=== PATIENT | male | born 1970 | race Caucasian/White ===

== ENCOUNTER 2019-10-11 10:51 | Emergency (ER) | payer OTHER ==
[2019-10-11 11:00] VITALS: RESP 18; TEMP 97.5
--- NOTE | 2019-10-11 12:03 | ED ---
GI Bleed HPI <Keith James - Last Filed: 10/11/19 14:32> - General Source: patient Mode of arrival: ambulatory Limitations: no limitations <Olga Vasquez - Last Filed: 10/11/19 15:39> - General Chief complaint: GI Bleed Stated complaint: Stomach pain Time Seen by Provider: 10/11/19 11:24 - History of Present Illness Initial comments: 49yo presents today for chief complaint of right lower quadrant abdominal discomfort and rectal bleeding. Patient states that for the past 5 days he has had blood in his stool with bowel movements as well as slight right lower quadrant abdominal discomfort. Patient denies any severe pain he states his stomach seems upset after eating. Patient denies nausea or vomiting. Patient denies any catrachito diarrhea. Patient states he has had a previous colonoscopy approximately 2 years ago where he was told he had diverticulosis. Patient denies any use of any medications denies anticoagulation use. Patient states that he has not had fevers, denies sick contact, or recent travel. Denies any specific food exposures. Patient denies any cold intolerance palpitations lightheadedness or presyncope. He states when the symptoms persisted today he felt those best he came in for evaluation. Patient denies any other complaints and upon arrival he appears well no signs of acute distress (Olga Vasquez) - Related Data Previous Rx's Medication Instructions Recorded Amoxic-Pot Clav 875-125Mg 1 tab PO Q12HR 7 Days #14 tablet 10/11/19 [Augmentin 875-125] Allergies Allergy/AdvReac Type Severity Reaction Status Date / Time No Known Allergies Allergy Verified 05/29/16 09:39 Review of Systems ROS Other: All systems not noted in ROS Statement are negative. <Keith James - Last Filed: 10/11/19 14:32> ROS Other: All systems not noted in ROS Statement are negative. <Olga Vasquez - Last Filed: 10/11/19 15:39> ROS Statement: Those systems with pertinent positive or pertinent negative responses have been documented in the HPI. Past Medical History Additional Past Medical History / Comment(s): collapsed lung 2000. recent diarrhea-family hx of bowel problems History of Any Multi-Drug Resistant Organisms: None Reported Past Surgical History: No Surgical Hx Reported Past Anesthesia/Blood Transfusion Reactions: No Reported Reaction Additional Past Anesthesia/Blood Transfusion Reaction / Comment(s): NO PRIOR SURGICAL HX Past Psychological History: No Psychological Hx Reported Smoking Status: Current every day smoker Past Alcohol Use History: Occasional Past Drug Use History: None Reported - Past Family History Mother Additional Family Medical History / Comment(s): CROHNS DISEASE <Olga Vasquez - Last Filed: 10/11/19 15:39> General Exam Limitations: no limitations <Olga Vasquez - Last Filed: 10/11/19 15:39> - General Exam Comments Initial Comments: General: The patient is awake and alert, in no distress, and does not appear acutely ill. Eye: +3 mm pupils are equal, round and reactive to light, extra-ocular movements are intact. No nystagmus. There is normal conjunctiva bilaterally. No signs of icterus. Ears, nose, mouth and throat: There are moist mucous membranes and no oral lesions. Neck: No JVD. Cardiovascular: There is a regular rate and rhythm. No murmur, rub or gallop is appreciated. Respiratory: Lungs are clear to auscultation, respirations are non-labored, breath sounds are equal. No wheezes, stridor, rales, or rhonchi. Gastrointestinal: Soft, non-distended, mild right lower quadrant abdominal tenderness remaining abdomen is nontender and without masses or organomegaly noted. There is no rebound or guarding present. No CVA tenderness. Bowel sounds are unremarkable. Musculoskeletal: Normal ROM, no tenderness. Strength 5/5. Sensation intact. radial pulses equal bilaterally 2+. Neurological: A&O x 3. CN II-XII intact grossly, There are no obvious motor or sensory deficits. Coordination appears grossly intact. Speech is normal. Skin: Skin is warm and dry and no rashes or lesions are noted. No LE edema. Psychiatric: Cooperative, appropriate mood & affect, normal judgment. (Olga Vasquez) Course Vital Signs 10/11/19 10/11/19 10/11/19 10:57 11:59 12:23 Temperature 97.5 F L Pulse Rate 71 60 Respiratory 18 18 16 Rate Blood Pressure 128/79 O2 Sat by Pulse 100 96 Oximetry 10/11/19 10/11/19 10/11/19 12:30 12:59 13:00 Temperature Pulse Rate 61 57 L Respiratory 16 18 16 Rate Blood Pressure 117/79 119/75 O2 Sat by Pulse 99 97 98 Oximetry 10/11/19 10/11/19 10/11/19 13:30 13:59 14:00 Temperature Pulse Rate 57 L Respiratory 18 16 Rate Blood Pressure 118/76 O2 Sat by Pulse 97 99 Oximetry 10/11/19 10/11/19 10/11/19 14:30 14:59 15:00 Temperature Pulse Rate 61 64 Respiratory 18 18 18 Rate Blood Pressure 116/74 115/67 O2 Sat by Pulse 98 97 97 Oximetry 10/11/19 15:22 Temperature Pulse Rate 64 Respiratory 18 Rate Blood Pressure 115/71 O2 Sat by Pulse 96 Oximetry Medical Decision Making - Lab Data Result diagrams: 10/11/19 12:18 10/11/19 12:18 <Keith James - Last Filed: 10/11/19 14:32> - Lab Data Result diagrams: 10/11/19 12:18 10/11/19 12:18 <Olga Vasquez - Last Filed: 10/11/19 15:39> - Medical Decision Making Discussed patient case with Dr. Fischer. CT imaging results were relayed to surgery. he is well-appearing. Surgery recommendations were to discharge and follow-up in the office on . (Keith James) Well-appearing 49-year-old male presenting for rectal bleeding with bowel movements. History of diverticulosis. No acute findings on CT consistent with diverticulitis. CT him and her results including incidental findings and other GI abnormalities were discussed with both patient and Dr. Fischer, who recommended outpatient f/u oN . Patient continues to have a benign abdominal exam, appears well in no discomfort and at this time I feel he stated for discharge with strict return parameters and general surgery f/u. Discussed case in detail with Dr. James who spoke with Dr. Fischer, reviewed labs, history and is agreeable to care plan and discharge. Return parameters were discussed at length prior to patient's discharge. Patient is agreeable (Olga Vasquez) - Lab Data Lab Results 10/11/19 10/11/19 10/11/19 Range/Units 12:18 12:18 12:18 WBC 6.1 (3.8-10.6) k/uL RBC 5.00 (4.30-5.90) m/uL Hgb 15.8 (13.0-17.5) gm/dL Hct 47.8 (39.0-53.0) % MCV 95.6 (80.0-100.0) fL MCH 31.6 (25.0-35.0) pg MCHC 33.1 (31.0-37.0) g/dL RDW 12.6 (11.5-15.5) % Plt Count 195 (150-450) k/uL Neutrophils % 65 % Lymphocytes % 22 % Monocytes % 6 % Eosinophils % 4 % Basophils % 1 % Neutrophils # 3.9 (1.3-7.7) k/uL Lymphocytes # 1.3 (1.0-4.8) k/uL Monocytes # 0.3 (0-1.0) k/uL Eosinophils # 0.3 (0-0.7) k/uL Basophils # 0.0 (0-0.2) k/uL APTT (22.0-30.0) sec Sodium 137 (137-145) mmol/L Potassium 4.2 (3.5-5.1) mmol/L Chloride 105 (98-107) mmol/L Carbon Dioxide 23 (22-30) mmol/L Anion Gap 9 mmol/L BUN 15 (9-20) mg/dL Creatinine 0.79 (0.66-1.25) mg/dL Est GFR (CKD-EPI)AfAm >90 (>60 ml/min/1.73 sqM) Est GFR (CKD-EPI)NonAf >90 (>60 ml/min/1.73 sqM) Glucose 92 (74-99) mg/dL Plasma Lactic Acid Edgar 1.1 (0.7-2.0) mmol/L Calcium 9.4 (8.4-10.2) mg/dL Total Bilirubin 0.6 (0.2-1.3) mg/dL AST 30 (17-59) U/L ALT 24 (4-49) U/L Alkaline Phosphatase 83 (38-126) U/L Troponin I (0.000-0.034) ng/mL Total Protein 7.4 (6.3-8.2) g/dL Albumin 4.6 (3.5-5.0) g/dL Stool Occult Blood (Negative) 10/11/19 10/11/19 10/11/19 Range/Units 12:18 12:18 15:15 WBC (3.8-10.6) k/uL RBC (4.30-5.90) m/uL Hgb (13.0-17.5) gm/dL Hct (39.0-53.0) % MCV (80.0-100.0) fL MCH (25.0-35.0) pg MCHC (31.0-37.0) g/dL RDW (11.5-15.5) % Plt Count (150-450) k/uL Neutrophils % % Lymphocytes % % Monocytes % % Eosinophils % % Basophils % % Neutrophils # (1.3-7.7) k/uL Lymphocytes # (1.0-4.8) k/uL Monocytes # (0-1.0) k/uL Eosinophils # (0-0.7) k/uL Basophils # (0-0.2) k/uL APTT 23.0 (22.0-30.0) sec Sodium (137-145) mmol/L Potassium (3.5-5.1) mmol/L Chloride (98-107) mmol/L Carbon Dioxide (22-30) mmol/L Anion Gap mmol/L BUN (9-20) mg/dL Creatinine (0.66-1.25) mg/dL Est GFR (CKD-EPI)AfAm (>60 ml/min/1.73 sqM) Est GFR (CKD-EPI)NonAf (>60 ml/min/1.73 sqM) Glucose (74-99) mg/dL Plasma Lactic Acid Edgar (0.7-2.0) mmol/L Calcium (8.4-10.2) mg/dL Total Bilirubin (0.2-1.3) mg/dL AST (17-59) U/L ALT (4-49) U/L Alkaline Phosphatase (38-126) U/L Troponin I <0.012 (0.000-0.034) ng/mL Total Protein (6.3-8.2) g/dL Albumin (3.5-5.0) g/dL Stool Occult Blood Negative (Negative) Disposition <Keith James - Last Filed: 10/11/19 14:32> Is patient prescribed a controlled substance at d/c from ED?: No Time of Disposition: 14:53 <Olga Vasquez - Last Filed: 10/11/19 15:39> Clinical Impression: GI bleed, Lung nodule, Diverticulosis, Abdominal discomfort Disposition: HOME SELF-CARE Condition: Good Instructions (If sedation given, give patient instructions): Gastrointestinal Bleeding (ED) Additional Instructions: Please use medication as discussed. Please follow-up with general surgery as discussed, call office to set up time. Return for increasing bleeding, pain or lightheadedness/presyncope. Please return to emergency room if the symptoms increase or worsen or for any other concerns. Prescriptions: Amoxic-Pot Clav 875-125Mg [Augmentin 875-125] 1 tab PO Q12HR 7 Days #14 tablet Referrals: Sandro Cortes MD [Primary Care Provider] - 1-2 days Kyree Fischer MD [STAFF PHYSICIAN] - 1-2 days
[2019-10-11 12:37] LABS: Basophils % (A) 1 %; Eosinophils # (A) 0.3 k/uL (0-0.7); Eosinophils % (A) 4 %; HCT 47.8 % (39.0-53.0); HGB 15.8 gm/dL (13.0-17.5); Lymphocytes # (A) 1.3 k/uL (1.0-4.8); Lymphocytes % (A) 22 %; MCH 31.6 pg (25.0-35.0); MCHC 33.1 g/dL (31.0-37.0); MCV 95.6 fL (80.0-100.0); Mean Platelet Volume 7.4; Monocytes # (A) 0.3 k/uL (0-1.0); Monocytes % (A) 6 %; Neutrophils # (A) 3.9 k/uL (1.3-7.7); Neutrophils % (A) 65 %; Platelet Count 195 k/uL (150-450); RDW 12.6 % (11.5-15.5); WBC 6.1 k/uL (3.8-10.6)
[2019-10-11 12:47] LABS: ALT 24 U/L (4-49); AST 30 U/L (17-59); African American GFR (CKD) >90 (>60 ml/min/1.73 sqM); Albumin 4.6 g/dL (3.5-5.0); Alkaline Phosphatase 83 U/L (38-126); Anion Gap 9 mmol/L; Blood Urea Nitrogen 15 mg/dL (9-20); Calcium 9.4 mg/dL (8.4-10.2); Carbon Dioxide 23 mmol/L (22-30); Chloride 105 mmol/L (98-107); Glucose 92 mg/dL (74-99); Non-African American GFR(CKD) >90 (>60 ml/min/1.73 sqM); Potassium 4.2 mmol/L (3.5-5.1); Sodium 137 mmol/L (137-145); Total Bilirubin 0.6 mg/dL (0.2-1.3); Total Protein 7.4 g/dL (6.3-8.2)
--- NOTE | 2019-10-11 13:55 | CT ---
EXAMINATION TYPE: CT abdomen pelvis w con DATE OF EXAM: 10/11/2019 COMPARISON: 12/07/2015 CT chest HISTORY: RLQ pain CT DLP: 1189.9 mGycm Automated exposure control for dose reduction was used. TECHNIQUE: Helical acquisition of images was performed from the lung bases through the pelvis. CONTRAST: Performed without Oral Contrast and with IV Contrast, patient injected with 100 mL of Isovue 300. FINDINGS: LUNG BASES: Bibasilar subsegmental dependent atelectasis. 2 mm solid right middle lobe subpleural pul monary nodule. LIVER/GB: Hepatic parenchyma is diffusely hypoattenuated in comparison to that of the spleen, most co mmonly seen in hepatic steatosis. This finding limits evaluation for hepatic masses. No gross evidenc e of hepatic mass is seen. No intrahepatic biliary ductal dilatation. No cholelithiasis on CT. PANCREAS: No significant abnormality is seen. SPLEEN: No significant abnormality is seen. ADRENALS: No significant abnormality is seen. KIDNEYS: No hydronephrosis. Kidneys enhance and excrete symmetrically. FREE AIR: No free air is visualized. ADENOPATHY: No greater than 1 cm short axis lymph nodes within the abdomen or pelvis. OSSEOUS STRUCTURES: Punctate probable bone island of the right femoral head. Mild arthropathy of the left sacroiliac joint. Mild degenerative change of the thoracolumbar spine as visualized. BOWEL: Epiploic appendage versus omental infarct is seen of the distal sigmoid colon on image 81 galo suring 1.6 cm. A few scattered colonic diverticula without pericolonic fat stranding. Appendix is air -filled and within normal limits of size. IMPRESSION: 1. NO CT EVIDENCE OF ACUTE APPENDICITIS. NO HYDRONEPHROSIS IS SEEN. NO RADIOPAQUE CALCULI IN THE GALL BLADDER. MILD DEGREE HEPATIC STEATOSIS. 2. EPIPLOIC APPENDAGE VERSUS OMENTAL INFARCT AROUND THE DISTAL SIGMOID COLON. 3. 2 MM SUBPLEURAL RIGHT MIDDLE LOBE PULMONARY NODULE. FOLLOW-UP CT IN 12 VERSUS FOCAL NONEMERGENT WO RKUP OF THE CHEST WITH CT THORAX.
[2019-10-11 15:20] VITALS: PULSE 64
[2019-10-11 15:23] VITALS: BP 115/71
== END 2019-10-11 15:23 | disposition home or self-care (01) ==
LOC: EC 10:51
DX: K92.1 Melena (principal); K57.91 Diverticulosis of intestine, part unspecified, without perforation or abscess with bleeding; R91.1 Solitary pulmonary nodule; K30 Functional dyspepsia; F17.200 Nicotine dependence, unspecified, uncomplicated; Z83.79 Family history of other diseases of the digestive system; Z87.19 Personal history of other diseases of the digestive system
CPT/HCPCS: 99285; 36415; 80053; 83605; 84484; 85025; 85730; 82272; 74177; Q9967

== ENCOUNTER 2019-10-25 07:39 | Day surgery (SDC) | payer OTHER ==
[2019-10-21 10:38] VITALS: BMI 26.2
[~2019-10-25 07:39] MED LIST: LACTATED RINGERS 1,000 ML IV SCH; LIDOCAINE 1% (10MG/ML) FOR IV START INTRADERMA PRN
[2019-10-25 08:09] VITALS: TEMP 97.9
[2019-10-25] MEDS ORDERED: PROPOFOL 10 MG/ML 20 ML VIAL IV ONE (09:06)
[2019-10-25] MEDS ORDERED: LIDOCAINE 1% INJ 10MG/ML (20 ML MDV) ONE (09:06)
--- NOTE | 2019-10-25 09:22 | P.GSHP ---
History of Present Illness H&P Date: 10/25/19 Chief Complaint: GI bleed This a 49-year-old male presents today for colonoscopy. He's had issues with GI bleed. Past Medical History Past Medical History: GERD/Reflux Additional Past Medical History / Comment(s): collapsed lung 2000, rectal bleeding with bowel movements-seen recently in , History of Any Multi-Drug Resistant Organisms: None Reported Past Surgical History: No Surgical Hx Reported Additional Past Surgical History / Comment(s): colonoscopy Past Anesthesia/Blood Transfusion Reactions: No Reported Reaction Additional Past Anesthesia/Blood Transfusion Reaction / Comment(s): NO PRIOR SURGICAL HX Smoking Status: Former smoker - Past Family History Mother Additional Family Medical History / Comment(s): CROHNS DISEASE Medications and Allergies Home Medications Medication Instructions Recorded Confirmed Type Amoxic-Pot Clav 875-125Mg 1 tab PO QAM 10/21/19 10/25/19 History [Augmentin 875-125] Ascorbic Acid [Vitamin C] 500 mg PO DAILY 10/21/19 10/25/19 History Magnesium Oxide 400 mg PO DAILY 10/21/19 10/25/19 History Allergies Allergy/AdvReac Type Severity Reaction Status Date / Time No Known Allergies Allergy Verified 10/25/19 07:59 Surgical - Exam Vital Signs Temp Pulse Resp BP Pulse Ox 97.9 F 64 16 123/75 97 10/25/19 08:06 10/25/19 08:06 10/25/19 08:06 10/25/19 08:06 10/25/19 08:06 - General well developed, well nourished, no distress - Eyes PERRL - ENT normal pinna - Neck no masses - Respiratory normal expansion - Cardiovascular Rhythm: regular - Abdomen Abdomen: soft, non tender Assessment and Plan Assessment: GI bleed. We'll perform colonoscopy.
--- NOTE | 2019-10-25 09:35 | P.OP ---
Date of Procedure: 10/25/19 Preoperative Diagnosis: GI bleed Postoperative Diagnosis: Mild diverticulosis Procedure(s) Performed: Colonoscopy Anesthesia: MAC Surgeon: Kyree Fischer Pathology: none sent Condition: stable Disposition: PACU Description of Procedure: The patient's placed on the endoscopy table in the lateral position. He received IV sedation. Digital rectal exam was performed which revealed no abnormalities. The prostate was symmetric without nodules. The flexible colonoscope was then placed patient anus passed throughout the entire colon. The ileocecal valve was visualized. The cecum, ascending and transverse colon appeared normal. In the descending; was mild diverticular changes. Scope was then brought back the rectum and this appeared normal. Scope withdrawn for patient.
[2019-10-25 09:37] VITALS: PULSE 82
[2019-10-25 09:53] VITALS: BP 107/73; RESP 18
== END 2019-10-25 10:15 | disposition home or self-care (01) ==
LOC: ORWHC2ENDO 07:39
PROVIDERS: ATTEND Surgery
DX: K57.31 Diverticulosis of large intestine without perforation or abscess with bleeding (principal); K21.9 Gastro-esophageal reflux disease without esophagitis; Z87.09 Personal history of other diseases of the respiratory system; Z98.890 Other specified postprocedural states; Z87.891 Personal history of nicotine dependence; Z79.899 Other long term (current) drug therapy; Z83.79 Family history of other diseases of the digestive system
CPT/HCPCS: 45378; J2001; J2704

== ENCOUNTER → 2019-10-27 | Outpatient (CLI) | payer OTHER ==
--- NOTE | 2019-10-27 16:55 | CT ---
EXAMINATION TYPE: CT chest w con DATE OF EXAM: 10/27/2019 COMPARISON: CTA chest December 07, 2015. Recent CT abdomen and pelvis October 11, 2019 HISTORY: pulmonary nodule CT DLP: 470.2 mGycm. Automated Exposure Control for Dose Reduction was Utilized. TECHNIQUE: CT scan of the thorax is performed following with IV Contrast, patient injected with 100 mL of Isovue 300. FINDINGS: LUNGS: Stable 2 mm subpleural nodule anterior right mid lung axial image 38, this was present in 2016 and stable is thus presumed benign. Mild biapical pleural/parenchymal scarring. Additional mild area s of linear scarring and/or atelectasis just above diaphragm. No pleural effusion or pneumothorax joni aterally. No additional suspicious greater than 4 mm nodules or masses. MEDIASTINUM: There are no greater than 1 cm hilar or mediastinal lymph nodes. No cardiomegaly or pe ricardial effusion is seen. OTHER: No additional significant abnormality is seen. IMPRESSION: As above. No concerning greater than 4 mm nodules.
== END | disposition home or self-care (01) ==
LOC: RADCTMAIN 15:54
PROVIDERS: ATTEND Pediatrics
DX: R91.1 Solitary pulmonary nodule (principal)
CPT/HCPCS: 71260; Q9967